=== PATIENT | female | born 1940 | race Caucasian/White ===

== ENCOUNTER 2022-07-04 18:50 | Inpatient (IN) | payer OTHER, MEDICARE ==
[2022-07-04 19:42] VITALS: BMI 24.5
[2022-07-04] MEDS ORDERED: ONDANSETRON 4 MG/2 ML VIAL IVPUSH ONE (19:57)
[2022-07-04] MEDS ORDERED: ACETAMINOPHEN 1000 MG/100 ML BAG IVPB ONE (19:57)
[2022-07-04 20:55] LABS: BASO % 0.3 % (0-2.0); EOS % 0.6 % (0-4.5); HEMATOCRIT 36.6 % (32.4-45.2); HEMOGLOBIN 12.4 GM/dL (10.7-15.3); MCH 30.5 pg (25.7-33.7); MCHC 33.8 g/dl (32.0-36.0); MEAN CELL VOLUME 90.3 fl (80-96); MEAN PLT VOLUME 8.5 fl (7.5-11.1); MONO % 6.2 % (3.8-10.2); NEUT % 84.9 % (42.8-82.8); PLATELET COUNT 221 10^3/uL (134-434); RBC 4.06 M/mm3 (3.60-5.2); RDW 13.4 % (11.6-15.6); WHITE BLOOD COUNT 10.9 K/mm3 (4.0-10.0)
[2022-07-04] MEDS ORDERED: morphine SULFATE 4 MG/ML VIAL IVPUSH ONE (21:09)
[2022-07-04] MEDS ORDERED: morphine SULFATE 4 MG/ML VIAL ONE (21:09)
[2022-07-04 21:17] LABS: ALBUMIN 3.8 g/dl (3.4-5.0); CALCIUM 8.8 mg/dL (8.5-10.1)
[2022-07-04 21:18] LABS: BLOOD UREA NITROGEN 44.5 mg/dL (7-18)
[2022-07-04 21:22] LABS: BILIRUBIN,TOTAL 0.5 mg/dL (0.2-1); INR 1.03 (0.83-1.09); PROTHROMBIN TIME (PATIENT) 11.8 SEC (9.7-13.0); TOT PROT 7.2 g/dl (6.4-8.2)
[2022-07-04 21:25] LABS: ACTIVATED PTT 27.7 SECONDS (25.2-36.5)
[2022-07-05] MEDS ORDERED: traMADol HCL 50 MG TABLET PO PRN (01:07)
[2022-07-05] MEDS ORDERED: D5-1/2NS+10 MEQ KCL - 10 MEQ/1,000 ML INFUS.BAG IV SCH (01:15)
[2022-07-05] MEDS ORDERED: ONDANSETRON 4 MG/2 ML VIAL IVPUSH ONE (05:30)
[2022-07-05] MEDS: ACETAMINOPHEN 325 MG TABLET (FP) PO PRN ×2 (06:01→16:53)
[2022-07-05] MEDS ORDERED: ONDANSETRON 4 MG/2 ML VIAL IVPUSH PRN (07:24)
[2022-07-05] MEDS ORDERED: ARTIFICIAL TEARS (POLYVINYL ALCOHOL) OPTH DROPS OU PRN (08:27)
[2022-07-05] MEDS ORDERED: SODIUM CHLORIDE NASAL SPRAY 44 ML BOTTLE NS PRN (08:32)
[2022-07-05 08:57] LABS: BASO % 0.3 % (0-2.0); EOS % 0.2 % (0-4.5); HEMOGLOBIN 11.3 GM/dL (10.7-15.3); MCH 30.9 pg (25.7-33.7); MCHC 34.3 g/dl (32.0-36.0); MEAN PLT VOLUME 8.6 fl (7.5-11.1); MONO % 10.8 % (3.8-10.2); NEUT % 78.7 % (42.8-82.8); PLATELET COUNT 206 10^3/uL (134-434); RBC 3.66 M/mm3 (3.60-5.2); RDW 13.1 % (11.6-15.6); WHITE BLOOD COUNT 8.6 K/mm3 (4.0-10.0)
[2022-07-05 09:17] LABS: CALCIUM 8.7 mg/dL (8.5-10.1)
[2022-07-05 09:18] LABS: BLOOD UREA NITROGEN 33.7 mg/dL (7-18)
[2022-07-05] MEDS ORDERED: LOSARTAN 50MG/HCTZ 12.5MG 1 TAB PO SCH (10:00)
[2022-07-05] MEDS ORDERED: CHOLECALCIFEROL (VIT D3) 1,000 UNIT (25 MCG) TABLET PO SCH (10:00)
[2022-07-05] MEDS ORDERED: PANTOPRAZOLE 40 MG TABLET PO SCH (10:00)
[2022-07-05] MEDS ORDERED: amLODIPine BESYLATE 5 MG TABLET (FP) PO SCH (10:00)
[2022-07-05] MEDS ORDERED: SOLIFENACIN SUCCINATE 5 MG TAB PO SCH (10:00)
[2022-07-05] MEDS: HEPARIN NA (PORCINE) 5,000 UNITS/ML 1ML VIAL SQ SCH ×2 (14:15→14:25)
[2022-07-05] MEDS ORDERED: METOPROLOL TARTRATE 25 MG TABLET (FP) PO SCH (15:45)
[2022-07-05 18:49] VITALS: BP 148/71; PULSE 71; RESP 18; TEMP 97.8
== END 2022-07-05 18:52 | disposition home or self-care (01) | DRG 563 ==
LOC: JER 18:50 → JERBED 20:27 → J4S 07-05 01:57
PROVIDERS: ADMIT Internal Medicine; ATTEND Internal Medicine
DX: S42.292A Other displaced fracture of upper end of left humerus, initial encounter for closed fracture (principal); S06.0X9A Concussion with loss of consciousness of unspecified duration, initial encounter; I24.8 Other forms of acute ischemic heart disease; I31.3 Pericardial effusion (noninflammatory); M16.12 Unilateral primary osteoarthritis, left hip; R55 Syncope and collapse; R26.81 Unsteadiness on feet; K58.9 Irritable bowel syndrome, unspecified; N32.81 Overactive bladder; I10 Essential (primary) hypertension; D72.829 Elevated white blood cell count, unspecified; R79.89 Other specified abnormal findings of blood chemistry; M62.81 Muscle weakness (generalized); R77.8 Other specified abnormalities of plasma proteins; F03.90 Unspecified dementia, unspecified severity, without behavioral disturbance, psychotic disturbance, mood disturbance, and anxiety; J45.909 Unspecified asthma, uncomplicated; H04.129 Dry eye syndrome of unspecified lacrimal gland; W18.30XA Fall on same level, unspecified, initial encounter; Y92.098 Other place in other non-institutional residence as the place of occurrence of the external cause; Z95.0 Presence of cardiac pacemaker
CPT/HCPCS: 0241U-QW; 36415; 70450-TC; 70486-TC; 71045-TC-FY; 71250-TC; 72125-TC; 72170-TC-FY; 73030-TC-LT-FY; 73070-TC-LT-FY; 73090-TC-LT-FY; 73110-TC-LT-FY; 73130-TC-LT-FY; 80048; 80053; 84484; 85025; 85610; 85730; 86850; 86900; 86901; 93005; 93010; 99285-25; J1644

== ENCOUNTER 2024-04-03 03:09 | Inpatient (IN) | payer OTHER, MEDICARE ==
[2024-04-03 04:10] LABS: BASO % 0.2 % (0-2.0); EOS % 1.1 % (0-4.5); HEMATOCRIT 37.3 % (32.4-45.2); HEMOGLOBIN 12.7 GM/dL (10.7-15.3); LYMPH % 12.9 % (8-40); MCH 29.9 pg (25.7-33.7); MEAN PLT VOLUME 8.4 fl (7.5-11.1); MONO % 7.4 % (3.8-10.2); NEUT % 78.4 % (42.8-82.8); PLATELET COUNT 223 10^3/uL (134-434); RBC 4.23 M/mm3 (3.60-5.2); RDW 14.2 % (11.6-15.6); WHITE BLOOD COUNT 10.1 K/mm3 (4.0-10.0)
[2024-04-03 04:36] LABS: POTASSIUM 3.6 mmol/L (3.5-5.1)
[2024-04-03 04:40] LABS: ALBUMIN 3.8 g/dl (3.4-5.0); BLOOD UREA NITROGEN 55.9 mg/dL (7-18)
[2024-04-03 04:43] LABS: CREATININE 1.3 mg/dL (0.55-1.3)
[2024-04-03 04:45] LABS: BILIRUBIN,TOTAL 0.7 mg/dL (0.2-1); TOT PROT 7.3 g/dl (6.4-8.2)
[2024-04-03 05:10] LABS: INR 0.97 (0.83-1.09); PROTHROMBIN TIME (PATIENT) 11.2 SEC (9.7-13.0)
[2024-04-03 05:13] LABS: ACTIVATED PTT 29.6 SECONDS (25.2-36.5)
[2024-04-03] MEDS: POLYETHYLENE GLYCOL (HEALTHYLAX) 3350 17 GM PACKET PO SCH (06:06)
[2024-04-03] MEDS ORDERED: LIDOCAINE 4% PATCH TP ONE (07:39)
[2024-04-03] MEDS: LIDOCAINE 5% TOPICAL PATCH TP ONE (07:48)
[2024-04-03] MEDS ORDERED: PANTOPRAZOLE 40 MG TABLET PO ONE (08:26)
[2024-04-03] MEDS ORDERED: KCL 10 MEQ IVPB 10 MEQ/100 ML INFUS.BAG IVPB ONE (08:27)
[2024-04-03] MEDS ORDERED: CHOLECALCIFEROL (VIT D3) 1,000 UNIT (25 MCG) TABLET ONE (08:27)
[2024-04-03] MEDS: PANTOPRAZOLE 40 MG TABLET PO SCH (09:13)
[2024-04-03] MEDS: CHOLECALCIFEROL (VIT D3) 1,000 UNIT (25 MCG) TABLET PO SCH (09:13)
[2024-04-03 09:37] LABS: MAGNESIUM 2.1 mg/dL (1.8-2.4)
[2024-04-03 09:40] LABS: PHOSPHOROUS 3.1 mg/dL (2.5-4.9)
[2024-04-03] MEDS ORDERED: amLODIPine BESYLATE 5 MG TABLET (FP) PO SCH (10:00)
[2024-04-03 10:46] VITALS: BMI 26.0
[2024-04-03] MEDS: POTASSIUM CHLORIDE 10 MEQ in SODIUM CHLORIDE 0.45% 1,000 ML IVPB SCH (11:10)
[2024-04-03] MEDS: MUPIROCIN 2% TOPICAL OINTMENT 22 GM TUBE TP SCH (11:32)
[2024-04-03] MEDS: HEPARIN NA (PORCINE) 5,000 UNITS/ML 1ML VIAL SQ SCH (13:01)
[2024-04-03] MEDS: TOLTERODINE TARTRATE LA 4 MG CAP.SR.24H (FP) PO SCH ×2 (13:09→23:38)
[2024-04-03] MEDS ORDERED: MECLIZINE HCL 25 MG TABLET (FP) PO PRN (15:05)
[2024-04-03] MEDS: MAG HYDROX/AL HYDROX/SIMETH 30 ML UNIT-DOSE CUP PO ONE (15:58)
[2024-04-03] MEDS ORDERED: ONDANSETRON 4 MG/2 ML VIAL IVPUSH PRN (18:34)
[2024-04-03] MEDS: LIDOCAINE PATCH REMOVAL MC SCH (23:39)
[2024-04-04] MEDS: POTASSIUM CHLORIDE 10 MEQ in SODIUM CHLORIDE 0.45% 1,000 ML IVPB SCH ×2 (08:08→20:00)
[2024-04-04 08:35] LABS: POTASSIUM 3.8 mmol/L (3.5-5.1)
[2024-04-04 08:45] LABS: CALCIUM 8.4 mg/dL (8.5-10.1)
[2024-04-04 08:46] LABS: CREATININE 1.1 mg/dL (0.55-1.3)
[2024-04-04 08:51] LABS: BASO % 0.3 % (0-2.0); EOS % 1.6 % (0-4.5); HEMATOCRIT 33.9 % (32.4-45.2); HEMOGLOBIN 11.6 GM/dL (10.7-15.3); LYMPH % 7.5 % (8-40); MCH 30.2 pg (25.7-33.7); MCHC 34.4 g/dl (32.0-36.0); MEAN CELL VOLUME 87.8 fl (80-96); MEAN PLT VOLUME 8.4 fl (7.5-11.1); MONO % 7.3 % (3.8-10.2); NEUT % 83.3 % (42.8-82.8); PLATELET COUNT 187 10^3/uL (134-434); RBC 3.85 M/mm3 (3.60-5.2); WHITE BLOOD COUNT 9.8 K/mm3 (4.0-10.0)
[2024-04-04] MEDS: LOSARTAN POTASSIUM 50 MG TABLET PO SCH (09:30)
[2024-04-04] MEDS: METOPROLOL TARTRATE 50 MG TABLET (FP) PO SCH (09:30)
[2024-04-04] MEDS: DOCUSATE SODIUM 100 MG CAPSULE (FP) PO ONE (13:49)
[2024-04-04] MEDS: DOCUSATE SODIUM 100 MG CAPSULE (FP) PO SCH (22:39)
[2024-04-05 08:22] LABS: POTASSIUM 3.8 mmol/L (3.5-5.1)
[2024-04-05 08:25] LABS: CALCIUM 8.5 mg/dL (8.5-10.1)
[2024-04-05 08:26] LABS: BLOOD UREA NITROGEN 23.3 mg/dL (7-18)
[2024-04-05 08:29] LABS: CREATININE 1.1 mg/dL (0.55-1.3)
[2024-04-05 08:45] LABS: BASO % 0.2 % (0-2.0); EOS % 0.9 % (0-4.5); HEMATOCRIT 31.6 % (32.4-45.2); HEMOGLOBIN 10.6 GM/dL (10.7-15.3); LYMPH % 5.3 % (8-40); MCH 29.3 pg (25.7-33.7); MCHC 33.6 g/dl (32.0-36.0); MEAN CELL VOLUME 87.3 fl (80-96); MEAN PLT VOLUME 8.5 fl (7.5-11.1); NEUT % 84.6 % (42.8-82.8); PLATELET COUNT 186 10^3/uL (134-434); RBC 3.62 M/mm3 (3.60-5.2); RDW 13.9 % (11.6-15.6); WHITE BLOOD COUNT 11.1 K/mm3 (4.0-10.0)
[2024-04-05] MEDS: amLODIPine BESYLATE 5 MG TABLET (FP) PO SCH (09:52)
[2024-04-05] MEDS: METOPROLOL TARTRATE 50 MG TABLET (FP) PO SCH (09:52)
[2024-04-05] MEDS: POLYETHYLENE GLYCOL (HEALTHYLAX) 3350 17 GM PACKET PO SCH ×2 (09:53→21:32)
[2024-04-05 15:54] LABS: PH,URINE 5.5 (5.0-8.0); URINE APPEARANCE CLOUDY; URINE BILIRUBIN NEGATIVE (NEGATIVE); URINE COLOR YELLOW; URINE GLUCOSE (UA) NEGATIVE (NEGATIVE); URINE KETONE NEGATIVE (NEGATIVE); URINE LEUK ESTERASE NEGATIVE (NEGATIVE); URINE NITRITE NEGATIVE (NEGATIVE); URINE PROTEIN TRACE (NEGATIVE)
[2024-04-06 09:17] LABS: BASO % 0.4 % (0-2.0); EOS % 1.1 % (0-4.5); HEMATOCRIT 30.6 % (32.4-45.2); HEMOGLOBIN 10.7 GM/dL (10.7-15.3); LYMPH % 8.4 % (8-40); MCH 30.4 pg (25.7-33.7); MEAN CELL VOLUME 86.9 fl (80-96); MEAN PLT VOLUME 8.5 fl (7.5-11.1); MONO % 9.4 % (3.8-10.2); NEUT % 80.7 % (42.8-82.8); PLATELET COUNT 194 10^3/uL (134-434); RBC 3.53 M/mm3 (3.60-5.2); RDW 13.7 % (11.6-15.6); WHITE BLOOD COUNT 10.5 K/mm3 (4.0-10.0)
[2024-04-06 09:36] LABS: POTASSIUM 3.8 mmol/L (3.5-5.1)
[2024-04-06 09:45] LABS: BLOOD UREA NITROGEN 22.4 mg/dL (7-18); CALCIUM 8.6 mg/dL (8.5-10.1)
[2024-04-06 09:49] LABS: CREATININE 1.1 mg/dL (0.55-1.3)
[2024-04-06 15:12] VITALS: RESP 18
[2024-04-07 09:40] LABS: BASO % 0.4 % (0-2.0); EOS % 1.6 % (0-4.5); HEMATOCRIT 31.9 % (32.4-45.2); HEMOGLOBIN 10.6 GM/dL (10.7-15.3); LYMPH % 9.5 % (8-40); MCH 29.1 pg (25.7-33.7); MCHC 33.2 g/dl (32.0-36.0); MEAN CELL VOLUME 87.7 fl (80-96); MEAN PLT VOLUME 8.3 fl (7.5-11.1); NEUT % 80.5 % (42.8-82.8); PLATELET COUNT 226 10^3/uL (134-434); RBC 3.64 M/mm3 (3.60-5.2); RDW 13.7 % (11.6-15.6); WHITE BLOOD COUNT 9.8 K/mm3 (4.0-10.0)
[2024-04-07 09:55] LABS: POTASSIUM 3.8 mmol/L (3.5-5.1)
[2024-04-07 10:10] LABS: CALCIUM 8.8 mg/dL (8.5-10.1)
[2024-04-07 10:11] LABS: BLOOD UREA NITROGEN 21.5 mg/dL (7-18)
[2024-04-07 10:14] LABS: CREATININE 1.1 mg/dL (0.55-1.3)
[2024-04-07] MEDS: traMADol HCL 50 MG TABLET PO ONE (10:21)
[2024-04-07] MEDS: LACTATED RINGERS SOLUTION 1,000 ML/1,000 ML INFUS.BAG IV SCH (22:13)
[2024-04-08 08:53] LABS: BASO % 0.7 % (0-2.0); EOS % 2.1 % (0-4.5); HEMATOCRIT 29.3 % (32.4-45.2); HEMOGLOBIN 10.1 GM/dL (10.7-15.3); LYMPH % 10.4 % (8-40); MCH 29.9 pg (25.7-33.7); MCHC 34.5 g/dl (32.0-36.0); MEAN CELL VOLUME 86.8 fl (80-96); MEAN PLT VOLUME 8.3 fl (7.5-11.1); MONO % 9.3 % (3.8-10.2); NEUT % 77.5 % (42.8-82.8); PLATELET COUNT 216 10^3/uL (134-434); RBC 3.38 M/mm3 (3.60-5.2); RDW 13.7 % (11.6-15.6); WHITE BLOOD COUNT 8.5 K/mm3 (4.0-10.0)
[2024-04-08 09:08] LABS: POTASSIUM 3.9 mmol/L (3.5-5.1)
[2024-04-08 09:12] LABS: BLOOD UREA NITROGEN 24.6 mg/dL (7-18)
[2024-04-08] MEDS: ACETAMINOPHEN 325 MG TABLET (FP) PO PRN (09:43)
[2024-04-08 15:26] VITALS: BP 132/79; PULSE 86; TEMP 98.9
== END 2024-04-08 17:25 | DRG 93 ==
LOC: JER 03:09 → JERBED 06:50 → OBSVTOIN 06:57 → J6S 10:06
PROVIDERS: ADMIT Internal Medicine; ATTEND Internal Medicine
DX: R26.81 Unsteadiness on feet (principal); M25.552 Pain in left hip; M25.551 Pain in right hip; F03.90 Unspecified dementia, unspecified severity, without behavioral disturbance, psychotic disturbance, mood disturbance, and anxiety; J45.909 Unspecified asthma, uncomplicated; R55 Syncope and collapse; I10 Essential (primary) hypertension; N32.81 Overactive bladder; K59.00 Constipation, unspecified; E86.0 Dehydration; K58.9 Irritable bowel syndrome, unspecified; F41.9 Anxiety disorder, unspecified; S80.212A Abrasion, left knee, initial encounter; W17.89XA Other fall from one level to another, initial encounter; Y92.098 Other place in other non-institutional residence as the place of occurrence of the external cause; Y99.9 Unspecified external cause status; Z95.0 Presence of cardiac pacemaker
CPT/HCPCS: 36415; 70450-TC; 71045-TC-FY; 72170-TC-FY; 73502-TC-LT-FY; 80048; 80053; 81003; 83735; 84100; 84484; 85025; 85610; 85730; 87086; 87635; 93005; 93010; 97116-GP; 97163-GP; 99285-25; G0378; J1644

== ENCOUNTER 2025-07-02 10:22 | Inpatient (IN) | payer OTHER, MEDICARE ==
[2025-07-02] MEDS ORDERED: ACETAMINOPHEN INJECTION 100 ML ONE (11:02)
[2025-07-02 11:24] LABS: ABSOLUTE IMMATURE GRANULOCYTES 0.05 x10^3/uL (0.0-0.031); BASOPHILS # 0.05 x10^3/uL (0.01-0.08); EOSINOPHIL % 0.7 % (0.7-5.8); EOSINOPHILS # 0.08 x10^3/uL (0.04-0.36); MCHC 31.8 g/dl (32.2-35.5); MEAN CELL VOLUME 93.4 fl (79.4-94.8); MEAN PLT VOLUME 10.3 fl (9.4-12.3); MONOCYTE # 0.71 x10^3/uL (0.24-0.86); MONOCYTE % 6.6 % (4.7-12.5); RDW 13.1 % (12.5-17.0)
[2025-07-02] MEDS: ACETAMINOPHEN 1000 MG/100 ML BAG IVPB ONE (11:29)
[2025-07-02 11:32] LABS: INR 1.04 (0.83-1.09); PROTHROMBIN TIME (PATIENT) 11.4 SEC (9.7-13.0)
[2025-07-02 11:34] LABS: ACTIVATED PTT 17.7 SECONDS (25.2-36.5)
[2025-07-02 12:15] LABS: GLUCOSE,RANDOM 119.0 mg/dL (74-106); TOT PROT 7.1 g/dl (6.4-8.2)
[2025-07-02 12:17] LABS: CO2 25.0 mmol/L (21-32)
[2025-07-02 12:18] LABS: ALK PHOS 73.0 U/L (40-150)
[2025-07-02 12:21] LABS: CREATININE 1.21 mg/dL (0.55-1.3); SGOT/AST 23.0 U/L (5-34); SGPT/ALT 19.0 U/L (0-55)
[2025-07-02 12:41] LABS: HCV DIAGNOSTIC IN-HOUSE W/RFLX NON-REACTIVE (NONREACTIVE)
[2025-07-02 12:42] LABS: HIV INTERPRETATION NEGATIVE (NEGATIVE)
[2025-07-02] MEDS ORDERED: ONDANSETRON 4 MG/2 ML VIAL ONE (12:52)
[2025-07-02] MEDS: ONDANSETRON 4 MG/2 ML VIAL IVPB ONE (12:56)
[2025-07-02] MEDS ORDERED: METOCLOPRAMIDE HCL INJECTION 10 MG/2 ML VIAL ONE (13:39)
[2025-07-02] MEDS: METOCLOPRAMIDE HCL INJECTION 10 MG/2 ML VIAL IVPB ONE (13:47)
[2025-07-02] MEDS ORDERED: KETOROLAC TROMETHAMINE 15 MG/ML VIAL ONE (13:48)
[2025-07-02] MEDS: KETOROLAC TROMETHAMINE 15 MG/ML VIAL IVPUSH ONE (14:05)
[2025-07-02] MEDS ORDERED: ARTIFICIAL TEARS OPHTHALMIC DROPS OU PRN (15:16)
[2025-07-02] MEDS ORDERED: PANTOPRAZOLE 40 MG TABLET PO ONE (15:39)
[2025-07-02] MEDS: PANTOPRAZOLE 40 MG TABLET PO SCH (15:47)
[2025-07-02] MEDS: D5-1/2NS+20 MEQ KCL - 20 MEQ/1,000 ML INFUS.BAG IV SCH (15:47)
[2025-07-02] MEDS ORDERED: HEPARIN NA (PORCINE) 5,000 UNITS/ML 1ML VIAL SQ SCH (22:00)
[2025-07-02] MEDS: HEPARIN NA (PORCINE) 5,000 UNITS/ML 1ML VIAL SQ SCH (22:48)
[2025-07-02] MEDS: METOPROLOL TARTRATE 25 MG TABLET (FP) PO SCH (22:48)
[2025-07-02] MEDS: ACETAMINOPHEN 325 MG TABLET (FP) PO PRN (23:14)
[2025-07-03 01:53] VITALS: RESP 18
[2025-07-03 03:57] VITALS: BMI 25.9
[2025-07-03] MEDS: D5-1/2NS+20 MEQ KCL - 20 MEQ/1,000 ML INFUS.BAG IV SCH (06:40)
[2025-07-03 08:22] LABS: ABSOLUTE IMMATURE GRANULOCYTES 0.04 x10^3/uL (0.0-0.031); BASOPHILS # 0.05 x10^3/uL (0.01-0.08); EOSINOPHIL % 2.1 % (0.7-5.8); EOSINOPHILS # 0.18 x10^3/uL (0.04-0.36); MCHC 30.9 g/dl (32.2-35.5); MEAN CELL VOLUME 94.6 fl (79.4-94.8); MEAN PLT VOLUME 10.3 fl (9.4-12.3); MONOCYTE # 0.83 x10^3/uL (0.24-0.86); MONOCYTE % 9.6 % (4.7-12.5); RDW 13.1 % (12.5-17.0)
[2025-07-03 08:45] LABS: GLUCOSE,RANDOM 112.0 mg/dL (74-106)
[2025-07-03 08:46] LABS: CO2 23.0 mmol/L (21-32)
[2025-07-03 08:50] LABS: CREATININE 1.26 mg/dL (0.55-1.3)
[2025-07-03] MEDS: MECLIZINE HCL 12.5 MG TABLET PO SCH (08:51)
[2025-07-03] MEDS ORDERED: LOSARTAN 50MG/HCTZ 12.5MG 1 TAB PO SCH (10:00)
[2025-07-03] MEDS: CHOLECALCIFEROL (VIT D3) 1,000 UNIT (25 MCG) TABLET PO SCH (10:36)
[2025-07-03] MEDS: LOSARTAN POTASSIUM 50 MG TABLET PO SCH (10:36)
[2025-07-03] MEDS: amLODIPine BESYLATE 5 MG TABLET (FP) PO SCH (10:37)
[2025-07-03] MEDS: guaiFENesin 600 MG TABLET.ER (FP) PO SCH (10:37)
[2025-07-04] MEDS: ACETAMINOPHEN 1000 MG/100 ML BAG IVPB PRN (06:45)
[2025-07-04] MEDS: METOPROLOL TARTRATE 25 MG TABLET (FP) PO SCH (06:50)
[2025-07-04] MEDS: MECLIZINE HCL 12.5 MG TABLET PO SCH (06:50)
[2025-07-04 07:52] LABS: ABSOLUTE IMMATURE GRANULOCYTES 0.04 x10^3/uL (0.0-0.031); BASOPHILS # 0.05 x10^3/uL (0.01-0.08); EOSINOPHIL % 2.2 % (0.7-5.8); EOSINOPHILS # 0.17 x10^3/uL (0.04-0.36); MCHC 31.8 g/dl (32.2-35.5); MEAN CELL VOLUME 95.1 fl (79.4-94.8); MEAN PLT VOLUME 9.7 fl (9.4-12.3); MONOCYTE # 0.69 x10^3/uL (0.24-0.86); MONOCYTE % 8.8 % (4.7-12.5); RDW 13.0 % (12.5-17.0)
[2025-07-04 08:07] LABS: CO2 25.0 mmol/L (21-32)
[2025-07-04 08:11] LABS: CREATININE 1.15 mg/dL (0.55-1.3)
[2025-07-04 08:45] LABS: GLUCOSE,RANDOM 106.0 mg/dL (74-106)
[2025-07-04] MEDS: LORazepam 2 MG/ML SDV VIAL IVPUSH PRN (09:28)
[2025-07-04] MEDS: amLODIPine BESYLATE 10 MG TABLET (FP) PO SCH (09:28)
[2025-07-04] MEDS: METOPROLOL TARTRATE 50 MG TABLET (FP) PO ONE (09:38)
[2025-07-05] MEDS: ACETAMINOPHEN 1000 MG/100 ML BAG IVPB PRN (01:02)
[2025-07-05 08:25] LABS: ABSOLUTE IMMATURE GRANULOCYTES 0.05 x10^3/uL (0.0-0.031); BASOPHILS # 0.04 x10^3/uL (0.01-0.08); EOSINOPHIL % 0.5 % (0.7-5.8); EOSINOPHILS # 0.07 x10^3/uL (0.04-0.36); MCHC 31.8 g/dl (32.2-35.5); MEAN CELL VOLUME 94.3 fl (79.4-94.8); MEAN PLT VOLUME 10.3 fl (9.4-12.3); MONOCYTE # 1.00 x10^3/uL (0.24-0.86); MONOCYTE % 7.7 % (4.7-12.5); RDW 13.0 % (12.5-17.0)
[2025-07-05 08:48] LABS: GLUCOSE,RANDOM 114.0 mg/dL (74-106)
[2025-07-05 08:49] LABS: CO2 26.0 mmol/L (21-32)
[2025-07-05 08:54] LABS: CREATININE 1.19 mg/dL (0.55-1.3)
[2025-07-06 06:51] VITALS: PULSE 60
[2025-07-06 08:44] LABS: ABSOLUTE IMMATURE GRANULOCYTES 0.09 x10^3/uL (0.0-0.031); BASOPHILS # 0.05 x10^3/uL (0.01-0.08); EOSINOPHIL % 1.9 % (0.7-5.8); EOSINOPHILS # 0.21 x10^3/uL (0.04-0.36); MCHC 31.8 g/dl (32.2-35.5); MEAN CELL VOLUME 93.9 fl (79.4-94.8); MEAN PLT VOLUME 10.2 fl (9.4-12.3); MONOCYTE # 0.86 x10^3/uL (0.24-0.86); MONOCYTE % 7.9 % (4.7-12.5); RDW 13.1 % (12.5-17.0)
[2025-07-06 09:50] LABS: GLUCOSE,RANDOM 100.0 mg/dL (74-106)
[2025-07-06 09:52] LABS: CO2 24.0 mmol/L (21-32)
[2025-07-06 09:56] LABS: CREATININE 1.11 mg/dL (0.55-1.3)
[2025-07-06 15:07] VITALS: BP 149/60; TEMP 97.7
[2025-07-06] MEDS: D5-1/2NS+20 MEQ KCL - 20 MEQ/1,000 ML INFUS.BAG IV SCH (15:12)
== END 2025-07-06 15:50 | DRG 641 ==
LOC: JER 10:22 → JERBED 19:34 → J6S 21:01 → OBSVTOIN 07-04 12:12
PROVIDERS: ADMIT Internal Medicine; ATTEND Internal Medicine
DX: E86.0 Dehydration (principal); I10 Essential (primary) hypertension; J45.909 Unspecified asthma, uncomplicated; R55 Syncope and collapse; R42 Dizziness and giddiness; W19.XXXA Unspecified fall, initial encounter; Y93.89 Activity, other specified; Y92.89 Other specified places as the place of occurrence of the external cause; Y99.8 Other external cause status
CPT/HCPCS: 36415; 70450-TC; 71045-TC-FY; 72125-TC; 72170-TC-FY; 73502-TC-LT-FY; 73552-TC-LT-FY; 73562-TC-LT-FY; 80048; 80053; 84484; 85025; 85610; 85730; 86803; 87389; 87635; 93005; 93010; 93306-TC; 97116-GP; 97162-GP; 99285-25; G0378